=== PATIENT | male | born 1995 | race Caucasian/White ===

== ENCOUNTER 2018-10-30 01:20 | Emergency (ER) | payer SELFPAY ==
[~2018-10-30] VITALS: Ht 182.9 cm; Wt 104.3 kg
[2018-10-30] MEDS ORDERED: HYDROcodone/APAP 7.5 MG/325 MG (LORTAB, LORCET PLUS) TABLET PO STA (01:47)
[2018-10-30] MEDS ORDERED: AMOXICILLIN 500 MG (POLYMOX) CAP PO STA (01:47)
[2018-10-30] MEDS ORDERED: ACHD5005 PO (01:53)
[2018-10-30] MEDS ORDERED: AMOX500C2 PO (01:53)
--- NOTE | 2018-10-30 01:53 | ED EENT ---
History of Present Illness General Chief Complaint: Dental Problems/Pain Stated Complaint: JAW PAIN Nursing Triage Note: right sided dental pain Source: patient Exam Limitations: no limitations History of Present Illness Date Seen by Provider: Oct 30, 2018 Time Seen by Provider: 01:36 Initial Comments Here with report of right upper jaw posterior aspect pain. He has a cavity that he needs to get a root canal but is unable to afford that currently. He's had this problem previously. He has tried acetaminophen and that is not working. Denies breathing or swallowing problems. Denies nausea or vomiting. Timing/Duration: gradual Severity: moderate Location: dental Prearrival Treatment: over the counter meds Associated Symptoms: No cough, No fever, No sore throat; tooth pain Allergies and Home Medications Allergies Coded Allergies: No Known Drug Allergies (Unverified , 10/30/18) Home Medications No Active Prescriptions or Reported Meds Patient Home Medication List Home Medication List Reviewed: Yes Review of Systems Review of Systems Constitutional: see HPI; No chills, No fever Ears: No Symptoms Reported Nose: no symptoms reported Mouth: see HPI, pain; denies swelling Throat: no symptoms reported Respiratory: no symptoms reported Cardiovascular: no symptoms reported Past Gkvuuxv-Ycamsi-Jlbycd Hx Past Med/Social Hx: Reviewed Nursing Past Med/Soc Hx Patient Social History Alcohol Use: Denies Use Recreational Drug Use: No Smoking Status: Current Everyday Smoker Type Used: Cigarettes 2nd Hand Smoke Exposure: Yes Recent Foreign Travel: No Contact w/Someone Who Travel: No Recent Infectious Disease Expo: No Recent Hopitalizations: No Immunizations Up To Date Tetanus Booster (TDap): Unknown PED Vaccines UTD: Yes Seasonal Allergies Seasonal Allergies: No Past Medical History Surgeries: Yes Appendectomy Respiratory: No Cardiac: No Neurological: No Genitourinary: No Gastrointestinal: No Musculoskeletal: No Endocrine: No HEENT: No Cancer: No Psychosocial: No Integumentary: No Blood Disorders: No Family Medical History Reviewed Nursing Family Hx Physical Exam Vital Signs Vital Signs - First Documented 10/30/18 01:28 Temp 96.8 Pulse 78 Resp 16 B/P (MAP) 144/87 (106) Pulse Ox 100 O2 Delivery Room Air Height, Weight, BMI Height: 6'0" Weight: 230lbs. oz. [id number]; BMI Method:Stated General Appearance: WD/WN, no apparent distress Ears: bilateral ear auricle normal, bilateral ear canal normal, bilateral ear TM normal Nose: normal inspection; No active bleeding Mouth/Throat: pharynx normal, dental tenderness (right upper rear molar with dental caries and tenderness) Neck: full range of motion, supple Cardiovascular: regular rate, rhythm, no murmur Respiratory: lungs clear, normal breath sounds Neurologic/Psychiatric: alert, oriented x 3 Skin: normal color, warm/dry Progress/Results/Core Measures Results/Orders Vital Signs/I&O 10/30/18 01:28 Temp 96.8 Pulse 78 Resp 16 B/P (MAP) 144/87 (106) Pulse Ox 100 O2 Delivery Room Air Blood Pressure Mean: 106 Progress Progress Note : Progress Note Seen and evaluated. Hydrocodone 7.5 one tab by mouth. Amoxicillin 1000 mg by mouth. Discharged home with return precautions. Patient verbalize understanding instructions and agreement with plan. Departure Impression Primary Impression: Dental caries Disposition: HOME, SELF-CARE Condition: Stable Departure-Patient Inst. Decision time for Depature: 01:51 Referrals: NO,LOCAL PHYSICIAN (PCP/Family) Primary Care Physician Patient Instructions: Dental Pain (DC) Add. Discharge Instructions: All discharge instructions reviewed with patient and/or family. Voiced understanding. You may take ibuprofen 800 mg every 8 hours as needed for pain. You may take Tylenol/acetaminophen 1000 mg every 8 hours as needed for pain if you're not taking the prescribed pain medicine. Do not take both at the same time as they have both got acetaminophen in them. You may rinse with salt water or mouthwash 2 or 3 times daily. Continue to brush her teeth. It is very important that he follow-up with a dentist JACOB. Return for worsening, fever, vomiting, weakness, breathing problems or other concerns as needed. Scripts Hydrocodone Bit/Acetaminophen (Hydrocodone/Acetaminophen 5/325mg Tablet) 1 Tab Tab 1 EACH PO Q4-6HR PRN for PAIN-MODERATE MDD 10, #8 TAB Prov: DEIDRE ALBERTO MD 10/30/18 Amoxicillin (Amoxicillin) 500 Mg Capsule 500 MG PO TID, #30 CAP 0 Refills Prov: DEIDRE ALBERTO MD 10/30/18 DEIDRE ALBERTO MD Oct 30, 2018 01:53
[2018-10-30 01:57] VITALS: BP 144/87
== END 2018-10-30 01:57 | disposition home or self-care (01) ==
LOC: ER 01:21
DX: K02.9 Dental caries, unspecified (principal); F17.210 Nicotine dependence, cigarettes, uncomplicated; Z90.49 Acquired absence of other specified parts of digestive tract
CPT/HCPCS: 99283